=== PATIENT | male | born 1975 | race African-American/Black ===

== ENCOUNTER 2020-04-18 11:56 | Emergency (ER) | payer OTHER ==
[~2020-04-18] VITALS: Ht 175.3 cm; Wt 88.0 kg
[2020-04-18] MEDS ORDERED: ACETAMINOPHEN 325MG TABLET PO ONE (12:30)
[2020-04-18] MEDS ORDERED: LIDOCAINE 1%/EPI 1:100,000 10 ML VIAL IJ ONE (12:45)
[2020-04-18] MEDS ORDERED: BACITRACIN ZINC OINT UDPKT TOP ONE (12:45)
[2020-04-18 13:39] VITALS: BP 129/72
== END 2020-04-18 13:45 | disposition home or self-care (01) ==
LOC: ER 11:56
DX: S91.311A Laceration without foreign body, right foot, initial encounter (principal); M79.671 Pain in right foot; W25.XXXA Contact with sharp glass, initial encounter; Y93.89 Activity, other specified; Y92.9 Unspecified place or not applicable
CPT/HCPCS: 12001; 73630; 99283

== ENCOUNTER 2020-04-21 08:46 | Emergency (ER) | payer OTHER ==
[~2020-04-21] VITALS: Ht 175.3 cm; Wt 89.0 kg
[2020-04-21 08:47] VITALS: BP 126/53
== END 2020-04-21 10:38 | disposition left against medical advice (07) ==
LOC: ER 08:50
DX: Z53.21 Procedure and treatment not carried out due to patient leaving prior to being seen by health care provider (principal)

== ENCOUNTER 2020-04-26 21:02 | Emergency (ER) | payer OTHER ==
[~2020-04-26] VITALS: Ht 175.3 cm; Wt 88.5 kg
[2020-04-26 21:05] VITALS: BP 121/69
== END 2020-04-26 22:17 | disposition left against medical advice (07) ==
LOC: ER 21:02
DX: Z48.02 Encounter for removal of sutures (principal); Z53.21 Procedure and treatment not carried out due to patient leaving prior to being seen by health care provider

== ENCOUNTER 2020-04-26 23:46 | Emergency (ER) | payer SELFPAY ==
[~2020-04-26] VITALS: Ht 175.3 cm; Wt 88.0 kg
[2020-04-27 01:01] VITALS: BP 120/80
== END 2020-04-27 01:02 | disposition home or self-care (01) ==
LOC: ER 23:46
DX: S91.311D Laceration without foreign body, right foot, subsequent encounter (principal); Z48.02 Encounter for removal of sutures; X58.XXXD Exposure to other specified factors, subsequent encounter
CPT/HCPCS: 99281